=== PATIENT | female | born 1960 | race Caucasian/White ===

== ENCOUNTER 2017-10-22 20:51 | Emergency (ER) | payer MEDICARE ==
--- NOTE | 2017-10-22 21:08 | ERPHSYRPT ---
- History of Present Illness Time Seen by Provider: 10/22/17 21:03 Historian: patient Exam Limitations: no limitations Physician History: The patient is a 57-year-old female complaining of a sudden onset of sharp stabbing central back pain radiating up into her left chest since noon today or 9 hours ago. Around 6:30 she took one nitroglycerin without any relief. She finally has decided that this is a heart attack because it feels like the one she had many years ago. She was slightly nauseated. It hurts for her to take a deep breath. She was not sweaty. She has a on-demand pacemaker. Timing/Duration: today, hour(s) (9) Activities at Onset: none Quality: sharpness Location: back Severity of Pain-Max: moderate Severity of Pain-Current: moderate Modifying Factors: Improves With: breathing, movement Associated Symptoms: nausea, hurts to breathe Prior Chest Pain/Cardiac Workup: heart attack Nitro Today/Relief: 0.4 mg x 1, provided at home, no relief Aspirin Treatment Today: no aspirin today Allergies/Adverse Reactions: No Known Drug Allergies Allergy (Unverified 10/22/17 21:38) - Review of Systems Constitutional: No Fever, No Chills Eyes: No Symptoms Ears, Nose, & Throat: No Symptoms Respiratory: No Cough, No Dyspnea Cardiac: Chest Pain Abdominal/Gastrointestinal: Nausea Genitourinary Symptoms: No Dysuria Musculoskeletal: No Back Pain, No Neck Pain Skin: No Rash Neurological: No Dizziness, No Focal Weakness, No Sensory Changes Psychological: No Symptoms Endocrine: No Symptoms Hematologic/Lymphatic: No Symptoms Immunological/Allergic: No Symptoms All Other Systems: Reviewed and Negative - Nursing Vital Signs Nursing Vital Signs: Initial Vital Signs Pulse Rate 92 H 10/22/17 20:53 Respiratory Rate 18 10/22/17 20:53 Blood Pressure 122/86 10/22/17 20:53 O2 Sat by Pulse Oximetry 99 10/22/17 20:53 Pain Scale Pain Intensity 7 - Physical Exam General Appearance: no apparent distress, alert Eye Exam: PERRL/EOMI, eyes nml inspection Ears, Nose, Throat Exam: normal ENT inspection, moist mucous membranes Neck Exam: normal inspection, non-tender, supple, full range of motion Respiratory Exam: normal breath sounds, chest tenderness (tenderness to palpation of left anterior and left lateral chest.) Cardiovascular Exam: regular rate/rhythm, normal heart sounds Gastrointestinal/Abdomen Exam: soft, No tenderness, No mass Pelvic Exam: not done Rectal Exam: not done Back Exam: normal inspection, No CVA tenderness, No vertebral tenderness Extremity Exam: normal inspection, normal range of motion Neurologic Exam: alert, oriented x 3, cooperative, normal mood/affect, sensation nml, No motor deficits Skin Exam: normal color, warm, dry SpO2 Interpretation: normal - Course EKG Interpreted by Me: RATE, Sinus Rhythm, NORMAL AXIS, NORMAL INTERVALS, NORMAL QRS, NORMAL ST-T - Radiology Exams Chest X-ray Interpretation: Interpreted by me, Negative (no comp cxr.) Ordered Tests: Active Orders 24 hr Category Date Time Status Property Handler STAT Care 10/22/17 21:14 Active EKG-ER Only STAT Care 10/22/17 21:13 Active IV Insertion STAT Care 10/22/17 21:13 Active Pulse Oximetry (ED) STAT Care 10/22/17 21:13 Active CHEST 2 VIEWS (PA AND LAT) Stat Exams 10/22/17 21:31 Taken CBC W DIFF Stat Lab 10/22/17 21:43 Completed CMP Stat Lab 10/22/17 21:43 Completed D-DIMER QUANTITATION Stat Lab 10/22/17 21:43 Completed NT PRO BNP Stat Lab 10/22/17 21:43 Completed TROPONIN Q3H Lab 10/22/17 21:43 Completed TROPONIN Q3H Lab 10/23/17 00:15 Ordered TROPONIN Q3H Lab 10/23/17 03:15 Ordered TROPONIN Q3H Lab 10/23/17 06:15 Ordered TROPONIN Q3H Lab 10/23/17 09:15 Ordered Medication Summary Discontinued Medications Generic Name Dose Route Start Last Admin Trade Name Freq PRN Reason Stop Dose Admin Aspirin 324 mg 10/22/17 21:13 10/22/17 21:40 Baby Aspirin 81 Mg Chew PO 10/22/17 21:14 324 mg STAT ONE Administration Aspirin Confirm 10/22/17 21:22 Baby Aspirin 81 Mg Chew Administered 10/22/17 21:23 Dose 324 mg .ROUTE .STK-MED ONE Ketorolac Tromethamine 30 mg 10/22/17 22:30 Toradol 30 Mg Injection IV 10/22/17 22:31 STAT ONE Nitroglycerin 0.4 mg 10/22/17 21:15 10/22/17 21:40 Nitrostat 0.4 Mg (Ed) SL 10/22/17 21:16 0.4 mg STAT ONE Administration Nitroglycerin Confirm 10/22/17 21:22 Nitrostat 0.4 Mg (Ed) Administered 10/22/17 21:23 Dose 0.4 mg SL .STK-MED ONE Ondansetron HCl 4 mg 10/22/17 21:13 10/22/17 21:40 Zofran 4 Mg/2 Ml Vial IV 10/22/17 21:14 4 mg STAT ONE Administration Ondansetron HCl Confirm 10/22/17 21:22 Zofran 4 Mg/2 Ml Vial Administered 10/22/17 21:23 Dose 4 mg .ROUTE .STK-MED ONE Lab/Rad Data: Laboratory Result Diagrams 10/22/17 21:43 10/22/17 21:43 Laboratory Results 10/22/17 10/22/17 10/22/17 Range/Units 21:43 21:43 21:43 WBC (4.0-10.5) K/mm3 RBC (4.1-5.4) M/mm3 Hgb (12.0-16.0) gm/dl Hct (35-47) % MCV (78-100) fl MCH (26-32) pg MCHC (32-36) g/dl RDW (11.5-14.0) % Plt Count (150-450) K/mm3 MPV (6-9.5) fl Gran % (36.0-66.0) % Eos # (Auto) (0-0.5) Absolute Lymphs (auto) (1.0-4.6) Absolute Monos (auto) (0.0-1.3) Lymphocytes % (24.0-44.0) % Monocytes % (0.0-12.0) % Eosinophils % (0.00-5.0) % Basophils % (0.0-0.4) % Absolute Granulocytes (1.4-6.9) Basophils # (0-0.4) D-Dimer 306 (215-500) ng/mL Sodium 139 (137-145) mmol/L Potassium 4.4 (3.5-5.1) mmol/L Chloride 105 (98-107) mmol/L Carbon Dioxide 24 (22-30) mmol/L Anion Gap 14.1 (5-15) MEQ/L BUN 18 H (7-17) mg/dL Creatinine 1.26 H (0.52-1.04) mg/dL Estimated GFR 46.7 ML/MIN Glucose 89 (74-106) mg/dL Calcium 9.3 (8.4-10.2) mg/dL Total Bilirubin 0.70 (0.2-1.3) mg/dL AST 31 (14-36) U/L ALT 25 (0-35) U/L Alkaline Phosphatase 90 (38-126) U/L Troponin I < 0.012 (0.000-0.034) ng/mL NT-Pro-B Natriuret Pep 19.3 (0-900) pg/mL Serum Total Protein 7.4 (6.3-8.2) g/dL Albumin 4.2 (3.5-5.0) g/dL 10/22/17 Range/Units 21:43 WBC 8.5 (4.0-10.5) K/mm3 RBC 4.13 (4.1-5.4) M/mm3 Hgb 12.4 (12.0-16.0) gm/dl Hct 36.4 (35-47) % MCV 88.1 (78-100) fl MCH 30.0 (26-32) pg MCHC 34.1 (32-36) g/dl RDW 12.9 (11.5-14.0) % Plt Count 316 (150-450) K/mm3 MPV 10.7 H (6-9.5) fl Gran % 51.7 (36.0-66.0) % Eos # (Auto) 0.21 (0-0.5) Absolute Lymphs (auto) 3.00 (1.0-4.6) Absolute Monos (auto) 0.87 (0.0-1.3) Lymphocytes % 35.1 (24.0-44.0) % Monocytes % 10.2 (0.0-12.0) % Eosinophils % 2.5 (0.00-5.0) % Basophils % 0.5 (0.0-0.4) % Absolute Granulocytes 4.42 (1.4-6.9) Basophils # 0.04 (0-0.4) D-Dimer (215-500) ng/mL Sodium (137-145) mmol/L Potassium (3.5-5.1) mmol/L Chloride (98-107) mmol/L Carbon Dioxide (22-30) mmol/L Anion Gap (5-15) MEQ/L BUN (7-17) mg/dL Creatinine (0.52-1.04) mg/dL Estimated GFR ML/MIN Glucose (74-106) mg/dL Calcium (8.4-10.2) mg/dL Total Bilirubin (0.2-1.3) mg/dL AST (14-36) U/L ALT (0-35) U/L Alkaline Phosphatase (38-126) U/L Troponin I (0.000-0.034) ng/mL NT-Pro-B Natriuret Pep (0-900) pg/mL Serum Total Protein (6.3-8.2) g/dL Albumin (3.5-5.0) g/dL - Progress Progress: improved Air Movement: good Progress Note: 10/22/17 22:31 Pt given ASA 324 mg and NG 0.4 mg without relief. Pt then given toradol 30 mg IV. Blood Culture(s) Obtained: No Antibiotics given: No Counseled pt/family regarding: lab results, diagnosis, need for follow-up, rad results - Departure Time of Disposition: 22:32 Departure Disposition: Home Clinical Impression: Musculoskeletal chest pain Condition: Stable Critical Care Time: No Referrals: KARLA PAGAN, [Primary Care Provider] - Additional Instructions: You had musculoskeletal chest pain that began 9 hours ago. Your troponin level was negative in the ER. You were given aspirin 324 mg orally and nitroglycerin 0.4 mg sublingually. You were given Toradol 30 mg by IV. Take Tylenol and ibuprofen as needed. Follow-up with your primary medical doctor tomorrow.
[2017-10-22] MEDS ORDERED: BABY ASPIRIN 81 MG CHEW PO ONE (21:13)
[2017-10-22] MEDS ORDERED: Zofran 4 MG/2 ML VIAL IV ONE (21:13)
[2017-10-22] MEDS ORDERED: Nitrostat 0.4 MG (ED) SL ONE ×2 (21:15→21:22)
[2017-10-22] MEDS ORDERED: Zofran 4 MG/2 ML VIAL ONE (21:22)
[2017-10-22] MEDS ORDERED: BABY ASPIRIN 81 MG CHEW ONE (21:22)
[2017-10-22 21:48] LABS: BASOPHIL % 0.5 % (0.0-0.4); Basophil (Absolute #) 0.04 (0-0.4); Eosinophil % 2.5 % (0.00-5.0); Eosinophil (Absolute #) 0.21 (0-0.5); Granulocyte Absolute (ANC) 4.42 (1.4-6.9); Granulocytes % 51.7 % (36.0-66.0); Hematocrit 36.4 % (35-47); Hemoglobin 12.4 gm/dl (12.0-16.0); Lymphocytes % 35.1 % (24.0-44.0); Mean Cell Volume 88.1 fl (78-100); Mean Corpuscular Hgb Concent. 34.1 g/dl (32-36); Mean Platelet Volume 10.7 fl (6-9.5); Monocyte (Absolute #) 0.87 (0.0-1.3); Monocytes % 10.2 % (0.0-12.0); Platelet Count 316 K/mm3 (150-450); Red Blood Count 4.13 M/mm3 (4.1-5.4); Red Cell Distribution Width 12.9 % (11.5-14.0); White Blood Count 8.5 K/mm3 (4.0-10.5)
[2017-10-22 22:14] VITALS: O2SAT 99
[2017-10-22 22:18] LABS: ALBUMIN 4.2 g/dL (3.5-5.0); ANION GAP 14.1 MEQ/L (5-15); BILIRUBIN,TOTAL 0.7 mg/dL (0.2-1.3); Calcium 9.3 mg/dL (8.4-10.2); Creatinine 1 1.26 mg/dL (0.52-1.04); NT PRO BNP 19.3 pg/mL (0-900); Potassium 4.4 mmol/L (3.5-5.1); Total Protein 7.4 g/dL (6.3-8.2)
[2017-10-22] MEDS ORDERED: TORAdol 30 mg Injection IV ONE (22:30)
[2017-10-22] MEDS ORDERED: TORAdol 30 mg Injection ONE (22:38)
[2017-10-22 22:55] VITALS: BP 109/64; PULSE 87
--- NOTE | 2017-10-23 08:46 | XRAY ---
Indication: Chest pain. Comparison: None PA/lateral chest demonstrates normal heart and lungs with left-sided dual-lead pacemaker. Bony thorax intact with minimal degenerative changes. Impression: Nonacute chest.
== END 2017-10-22 23:05 | disposition home or self-care (01) ==
LOC: ED 20:51
DX: R07.89 Other chest pain (principal); R11.0 Nausea; Z95.0 Presence of cardiac pacemaker
CPT/HCPCS: 36000; 36415; 71046; 80053; 83880; 84484; 85025; 85379; 93005; 93041; 96374; 96375; 99284; J1885; J2405; A9270-GY